=== PATIENT | male | born 1970 | race Caucasian/White ===

== ENCOUNTER → 2017-08-08 | Outpatient (REF) | payer BC | LOC: M LAB REF 12:56 | PROVIDERS: ATTEND Physician Assistant | DX: R09.89 Other specified symptoms and signs involving the circulatory and respiratory systems (principal) ==

== ENCOUNTER → 2019-09-08 | Outpatient (REF) | payer BC | LOC: M LAB REF 09:07 | PROVIDERS: ATTEND Physician Assistant Medical | DX: B80 Enterobiasis (principal) ==

== ENCOUNTER → 2019-09-17 | Outpatient (REF) | payer BC | LOC: M LAB REF 10:34 | PROVIDERS: ATTEND Physician Assistant | DX: B89 Unspecified parasitic disease (principal) ==

== ENCOUNTER 2020-07-07 16:06 | Emergency (ER) | payer BC ==
[~2020-07-07] VITALS: Ht 177.8 cm; Wt 110.7 kg
[2020-07-07] MEDS ORDERED: ALLO100T (16:15)
--- NOTE | 2020-07-07 17:00 | REP ---
INDICATION: CHEST PAIN. COMPARISON: None. TECHNIQUE: SINGLE PORTABLE AP VIEW OF THE CHEST WAS PERFORMED. FINDINGS: THERE IS NO ACUTE INFILTRATE OR PULMONARY EDEMA. LUNGS ARE CLEAR. HEART IS NOT SIGNIFICANTLY ENLARGED. MEDIASTINAL SILHOUETTE IS UNREMARKABLE. THE VISUALIZED OSSEOUS STRUCTURES ARE INTACT. IMPRESSION: NO ACUTE PULMONARY DISEASE. <Electronically signed by Talha Comer > 07/07/20 0450
[2020-07-07 17:43] LABS: BASO % 0.4 % (0.0-1.0); EOS # 0.1 10^3/uL (0.0-0.5); EOS % 1.5 % (0.0-3.0); HEMATOCRIT 39.7 % (42.0-52.0); HEMOGLOBIN 13.8 g/dl (13.5-17.5); LYMPH # 1.7 10^3/uL (1.5-5.0); LYMPH % 31.9 % (24.0-44.0); MEAN CORPUSCULAR HEMOGLOBIN 31.5 pg (27.0-33.0); MEAN CORPUSCULAR HGB CONC 34.8 g/dl (32.0-36.5); MEAN CORPUSCULAR VOLUME 90.6 fl (80.0-96.0); MONO # 0.5 10^3/uL (0.0-0.8); MONO % 9.2 % (0.0-5.0); NEUTROPHILS # 2.9 10^3/uL (1.5-8.5); NEUTROPHILS % 56.2 % (36.0-66.0); PLATELET COUNT, AUTOMATED 209 10^3/uL (150-450); RED BLOOD COUNT 4.38 10^6/uL (4.30-6.10); WHITE BLOOD COUNT 5.2 10^3/uL (4.0-10.0)
[2020-07-07 18:28] LABS: BILIRUBIN,DIRECT 0.1 MG/DL (0.0-0.2); BILIRUBIN,TOTAL 0.5 MG/DL (0.2-1.0); FREE T4 1.04 NG/DL (0.76-1.46); THYROID STIMULATING HORMONE 1.91 uIU/ML (0.358-3.740); TOTAL PROTEIN 6.9 GM/DL (6.4-8.2)
[2020-07-07 19:27] VITALS: BP 125/74
--- NOTE | 2020-07-07 19:50 | ECGEPIP ---
[facility] - ED Test Date: 2020-07-07 Pat Name: GEORGE AGUILAR Department: Room: - Gender: Male Managing Editor: : [id number] Requested By: Guerline Price Order Number: [id number] Reading MD: Bisi Arzate Measurements Intervals [place] Rate: 60 P: 48 DE: 213 QRS: -1 QRSD: 118 T: 11 QT: 448 QTc: 451 Interpretive Statements SINUS RHYTHM WITH FIRST DEGREE AV BLOCK WITH OCCASIONAL VENTRICULAR PREMATURE COMPLEXES POSSIBLE RIGHT VENTRICULAR CONDUCTION DELAY NSTTW abnormalities baseline artifact may affect interpretation NO PRIOR Electronically Signed on 07-07-2020 19:50:05 EST by Bisi Arzate
== END 2020-07-07 19:29 | disposition home or self-care (01) ==
LOC: M ED 16:06
DX: R00.2 Palpitations (principal); R94.31 Abnormal electrocardiogram [ECG] [EKG]